=== PATIENT | female | born 1965 | race Hispanic/Latino ===

== ENCOUNTER → 2019-12-22 | Outpatient (CLI) | payer OTHER ==
[~2019-12-22] MED LIST: ASPI-988 PO; BUTA1CAP51 PO; ESOM40CA PO; LISI-617 PO; MULT-1112 PO; THYR30TA2 PO; TRAM50TA4 PO; VIT1TABL66 PO
== END | disposition home or self-care (01) ==
LOC: SHCH 15:24
PROVIDERS: ATTEND Internal Medicine Cardiovascular Disease
DX: R06.00 Dyspnea, unspecified (principal)
CPT/HCPCS: 93306